=== PATIENT | male | born 1945 | race Caucasian/White ===

== ENCOUNTER 2016-12-28 08:51 | Emergency (ER) | payer OTHER ==
[~2016-12-28] VITALS: Ht 188 cm; Wt 106.6 kg
[~2016-12-28 08:51] MED LIST: ACT15 PO; ALTACE5 MG PO; GLYBURIDE2.5 MG PO; LOVASTATIN40 MG PO; METFORMIN ER500 M1 PO; VERAPAMIL HCL240 MG PO
[2016-12-28 11:54] VITALS: BP 117/62
== END 2016-12-28 11:54 | disposition home or self-care (01) ==
LOC: ED 08:51
DX: M23.92 Unspecified internal derangement of left knee (principal); I10 Essential (primary) hypertension; E11.9 Type 2 diabetes mellitus without complications; Z88.0 Allergy status to penicillin
CPT/HCPCS: Q0092